=== PATIENT | male | born 1990 | race Two or more races ===

== ENCOUNTER 2019-06-03 23:02 | Emergency (ER) | payer OTHER ==
[~2019-06-03] VITALS: Ht 180.3 cm; Wt 72.6 kg
--- NOTE | 2019-06-03 23:05 | NUR ---
ED Nurse Note: Patient was BIBA from home due to SI. Stated that wants to stub himself with the knife. AAO x4, VSS at this time, skin is warm to touch. Patient presented calm, smiling. Patient was undressed, all precautions were met.
--- NOTE | 2019-06-03 23:08 | NUR ---
ED Nurse Note: Patient's belongings were placed in locker # 3.
[2019-06-03] MEDS ORDERED: RISPERDAL0.25 MG ORAL (23:09)
--- NOTE | 2019-06-03 23:40 | NUR ---
ED Nurse Note: [employer] by bed side, assessing the patient.
[2019-06-03 23:46] VITALS: BP 105/62
--- NOTE | 2019-06-03 23:53 | NUR ---
ED Nurse Note: ALISHA eckert: Alonso # [id number], and Do # [id number] placed patient on the 5150 hold.
[2019-06-04 01:46] VITALS: BP 105/62
[2019-06-04 02:21] LABS: BASOPHILS % (AUTO) 0.9 % (0.0-2.0); EOSINOPHILS % (AUTO) 2.1 % (0.0-3.0); HEMATOCRIT 50.4 % (42.0-52.0); HEMOGLOBIN 17.3 G/DL (14.2-18.0); LYMPHOCYTES % (AUTO) 29.2 % (20.0-45.0); MEAN CORPUSCULAR VOLUME 90 FL (80-99); NEUTROPHILS % (AUTO) 61.7 % (45.0-75.0); PLATELET COUNT 279 K/UL (150-450); RED BLOOD COUNT 5.63 M/UL (4.70-6.10); RED CELL DISTRIBUTION WIDTH 11.1 % (11.6-14.8); WHITE BLOOD COUNT 11.4 K/UL (4.8-10.8)
[2019-06-04 02:22] LABS: APPEARANCE,URINE CLEAR; BILIRUBIN, URINE NEGATIVE (NEGATIVE); GLUCOSE, URINE (UA) NEGATIVE (NEGATIVE); KETONES,URINE NEGATIVE (NEGATIVE); LEUKOCYTE ESTERASE ,URINE 1+ (NEGATIVE); NITRITE,URINE NEGATIVE (NEGATIVE); PH,URINE 6 (4.5-8.0); PROTEIN,URINE NEGATIVE (NEGATIVE); UROBILINOGEN,URINE 1 MG/DL (0.0-1.0)
[2019-06-04 02:23] LABS: COLOR,URINE YELLOW
[2019-06-04 02:33] LABS: ANION GAP 8 mmol/L (5-15); BLOOD UREA NITROGEN 7 mg/dL (7-18); CALCIUM 9.8 MG/DL (8.5-10.1); CARBON DIOXIDE 29 MMOL/L (21-32); CHLORIDE 107 MMOL/L (98-107); CREATININE 0.8 MG/DL (0.55-1.30); POTASSIUM 4.1 MMOL/L (3.5-5.1); SODIUM 144 MMOL/L (136-145)
[2019-06-04 02:37] LABS: ALANINE AMINOTRANSFERASE 16 U/L (12-78); ALBUMIN 4.8 G/DL (3.4-5.0); ALBUMIN/GLOBULIN RATIO 1.3 (1.0-2.7); ALKALINE PHOSPHATASE 132 U/L (46-116); ASPARTATE AMINO TRANSFERASE 16 U/L (15-37); BILIRUBIN,TOTAL 0.7 MG/DL (0.2-1.0)
--- NOTE | 2019-06-04 03:47 | Emergency Room Report ---
History of Present Illness General Chief Complaint: Suicidal Source: Patient Present Illness HPI Disclaimer: Please note that this report is being documented using [employer] technology. This can lead to erroneous entry secondary to incorrect interpretation by the dictating instrument. HPI: 28-year-old male with a history of anxiety, depression, schizophrenia presents for evaluation of suicidal thoughts. The patient states that he sees a psychiatrist and is treated with Risperdal for his schizophrenia. He has been hearing voices and feeling suicidal over the past 24 hours. Cannot recall specific trigger. Does not recall any altercations and denies any alcohol or drug use. States that the voices are telling him to grab a kitchen knife and stabbed himself in the abdomen. The patient states he became very scared that he might do it and call the authorities. He is on a 5150 hold. Currently denies any complaints of headache, chest pain, shortness of breath, vomiting, diarrhea, rash. He did not attempt to hurt himself. Denies homicidal thoughts. PMH: Anxiety, depression, schizophrenia PSH: Denies Allergies: Denies Social Hx: Regular tobacco use, occasional alcohol use. Denies drug use Allergies: Coded Allergies: No Known Allergies (Unverified , 06/03/19) Nursing Documentation-PMH Past Medical History: No History, Except For History Of Psychiatric Problem: Yes Review of Systems All Other Systems: negative except mentioned in HPI Physical Exam Vital Signs Date Time Temp Pulse Resp B/P (MAP) Pulse Ox O2 Delivery O2 Flow Rate FiO2 06/03/19 23:05 98.2 89 16 105/62 (76) 97 Room Air General: Awake and alert, no acute distress HEENT: NC/AT. EOMI. Cardiovascular: RRR. S1 and S2 normal. No murmur appreciated Resp: Normal work of breathing. No cough, wheezing or crackles appreciated Abdomen: Abdomen is soft, nondistended. Nontender Skin: Intact. No abrasions, laceration or rash over the exposed skin MSK: Normal tone and bulk. Moving all extremities. No obvious deformity. Neuro: Awake and alert. Mentating appropriately. Reports suicidality and denies homicidality. Making good eye contact. Answers questions appropriately. Medical Decision Making Diagnostic Impression: Primary Impression: Suicidal ideation ER Course This is 28-year-old male presented for evaluation of suicidal thoughts. The patient has a plan and is on a 5150 hold for psychiatric evaluation. Labs were performed on his arrival without any significant findings. He is stable and awaiting psychiatric evaluation. Laboratory Tests Test 06/04/19 02:05 White Blood Count 11.4 K/UL (4.8-10.8) H Red Blood Count 5.63 M/UL (4.70-6.10) Hemoglobin 17.3 G/DL (14.2-18.0) Hematocrit 50.4 % (42.0-52.0) Mean Corpuscular Volume 90 FL (80-99) Mean Corpuscular Hemoglobin 30.7 PG (27.0-31.0) Mean Corpuscular Hemoglobin Concent 34.2 G/DL (32.0-36.0) Red Cell Distribution Width 11.1 % (11.6-14.8) L Platelet Count 279 K/UL (150-450) Mean Platelet Volume 6.9 FL (6.5-10.1) Neutrophils (%) (Auto) 61.7 % (45.0-75.0) Lymphocytes (%) (Auto) 29.2 % (20.0-45.0) Monocytes (%) (Auto) 6.0 % (1.0-10.0) Eosinophils (%) (Auto) 2.1 % (0.0-3.0) Basophils (%) (Auto) 0.9 % (0.0-2.0) Urine Color Yellow Urine Appearance Clear Urine pH 6 (4.5-8.0) Urine Specific Glynn 1.025 (1.005-1.035) Urine Protein Negative (NEGATIVE) Urine Glucose (UA) Negative (NEGATIVE) Urine Ketones Negative (NEGATIVE) Urine Blood Negative (NEGATIVE) Urine Nitrite Negative (NEGATIVE) Urine Bilirubin Negative (NEGATIVE) Urine Urobilinogen 1 MG/DL (0.0-1.0) H Urine Leukocyte Esterase 1+ (NEGATIVE) H Urine RBC 0-2 /HPF (0 - 0) H Urine WBC 0-2 /HPF (0 - 0) Urine Squamous Epithelial Cells None /LPF (NONE/OCC) Urine Bacteria None /HPF (NONE) Urine Mucus Many /LPF (NONE/OCC) H Sodium Level 144 MMOL/L (136-145) Potassium Level 4.1 MMOL/L (3.5-5.1) Chloride Level 107 MMOL/L (98-107) Carbon Dioxide Level 29 MMOL/L (21-32) Anion Gap 8 mmol/L (5-15) Blood Urea Nitrogen 7 mg/dL (7-18) Creatinine 0.8 MG/DL (0.55-1.30) Estimate Glomerular Filtration Rate > 60 mL/min (>60) Glucose Level 95 MG/DL (74-106) Calcium Level 9.8 MG/DL (8.5-10.1) Total Bilirubin 0.7 MG/DL (0.2-1.0) Aspartate Amino Transferase (AST) 16 U/L (15-37) Alanine Aminotransferase (ALT) 16 U/L (12-78) Alkaline Phosphatase 132 U/L (46-116) H Total Protein 8.6 G/DL (6.4-8.2) H Albumin 4.8 G/DL (3.4-5.0) Globulin 3.8 g/dL Albumin/Globulin Ratio 1.3 (1.0-2.7) Salicylates Level 0.7 ug/mL (2.8-20) L Urine Opiates Screen Negative (NEGATIVE) Acetaminophen Level < 2 MCG/ML (10-30) L Urine Barbiturates Screen Negative (NEGATIVE) Phencyclidine (PCP) Screen Negative (NEGATIVE) Urine Amphetamines Screen Negative (NEGATIVE) Urine Benzodiazepines Screen Negative (NEGATIVE) Urine Cocaine Screen Negative (NEGATIVE) Urine Marijuana (THC) Screen Negative (NEGATIVE) Serum Alcohol < 3 mg/dL Reevaluation Time: 06:48 Last Vital Signs Date Time Temp Pulse Resp B/P (MAP) Pulse Ox O2 Delivery O2 Flow Rate FiO2 06/04/19 01:46 98.2 78 16 105/62 97 Room Air Reevaluation Impression Remains in stable condition pending psychiatric evaluation. Signed out to oncoming physician. Signed Out To: Dr. Bourne Referrals: NOT CHOSEN IPA/,REFERRING (PCP) Zuhair Obando MD Jun 04, 2019 03:47
[2019-06-04 04:45] VITALS: BP 105/65
--- NOTE | 2019-06-04 04:46 | NUR ---
ED Nurse Note: Patient is in the bed sleeping, no acute disstress noticed, VSS at this time, sitter by bed side.
--- NOTE | 2019-06-04 07:05 | NUR ---
HAND-OFF: Report given to Chanel.
[2019-06-04 07:15] VITALS: BP 118/58
--- NOTE | 2019-06-04 07:49 | NUR ---
ED Nurse Note: RN gave reports to Purnima romana at [facility] of [facility]. Awaiting call from vp [employer] and crm to [facility] transfer.
[2019-06-04 09:15] VITALS: BP 99/61
[2019-06-04 09:52] VITALS: BP 98/60
--- NOTE | 2019-06-04 09:52 | NUR ---
ED Nurse Note: sitter order d/c
--- NOTE | 2019-06-04 09:52 | NUR ---
ER DISCHARGE NOTE: Patient is cleared to be transferred per ERMD over to [facility], pt is aox4, on room air, with stable vital signs. Ambulance personnel was given the face sheet. Pt id band and iv site removed without complications. Pt's belongings sent with the patient. Pt was carried in a gurney by [facility] personnel #[id number].
== END 2019-06-04 09:55 ==
LOC: EDBD 23:02 → EMR 06-04 00:39
DX: R45.851 Suicidal ideations (principal); F32.9 Major depressive disorder, single episode, unspecified; F20.9 Schizophrenia, unspecified; F41.9 Anxiety disorder, unspecified
CPT/HCPCS: 36415; 80053; 80307; 80329; 81003; 85025; 99284